=== PATIENT | male | born 1940 | race Caucasian/White ===

== ENCOUNTER 2018-08-18 05:54 | Day surgery (SDC) | payer MEDICARE ==
[~2018-08-18] VITALS: Ht 177.8 cm; Wt 94.3 kg
[~2018-08-18 05:54] MED LIST: ASCO500 PO; ASPI81CH PO; ATEN50 PO; CENTRUM SILVER1 EAC2 PO; LEVSOD100 PO; LISI5 PO; LOVA40 PO; NITR.4SL SL
--- NOTE | 2018-08-18 09:43 | NUR ---
NURSE MIDWIFE/CLINICAL INSTRUCTOR (JOSIE) GAVE REPORT. PT HAS DRSG LLQ WITH TAPE AND GAUZE CDI. PT DENIES PAIN STATES "ALITTLE TWINGE WHEN I MOVE". PT IS NOW SITTING UP AND DRINKING COFFEE WITH AT BEDSIDE. STATES THAT SHE HAS RX.
--- NOTE | 2018-08-18 09:55 | NUR ---
REPORT GIVEN TO JOHN GRAY. SHE WILL ASSUME CARE OF PT.
--- NOTE | 2018-08-18 10:19 | NUR ---
ASSUMING CARE OF PT. JOHN GRAY GAVE PT D/C INSTRUCTIONS. HAS PAPERWORK. PT HAS NO QUESTIONS OR CONCERNS. JOHN GRAY STATES PT DENIES PAIN AND IS STABLE FOR D/C . Discharge instructions reviewed with patient. Patient verbalizes understanding. Copy given to patient to take home. Patient States Post-Procedure ride home has been arranged. Discharged via wheelchair to private car for ride home. WILL DRIVE PT HOME.
== END 2018-08-18 22:51 | disposition home or self-care (01) ==
LOC: ORSCMMR 05:54 → ORD 07:30 → ORSCMMR 07:30
PROVIDERS: Surgery
PROC: 0YU60JZ Supplement Left Inguinal Region with Synthetic Substitute, Open Approach (ICD-10-PCS; principal; 2018-08-18 07:30)
DX: K40.90 Unilateral inguinal hernia, without obstruction or gangrene, not specified as recurrent (principal); I10 Essential (primary) hypertension; I25.10 Atherosclerotic heart disease of native coronary artery without angina pectoris; G47.33 Obstructive sleep apnea (adult) (pediatric); I25.2 Old myocardial infarction; E03.9 Hypothyroidism, unspecified; Z79.899 Other long term (current) drug therapy; Z79.82 Long term (current) use of aspirin
CPT/HCPCS: C1781; J0690; J1100; J1885; J2405; J2710; J3010; J7120

== ENCOUNTER → 2018-09-10 | Outpatient (CLI) | payer MEDICARE | END | disposition home or self-care (01) | LOC: LAB 13:27 → LAB SHORT 13:27 | DX: R82.90 Unspecified abnormal findings in urine (principal) | CPT/HCPCS: 87077; 87086; 87186 ==

== ENCOUNTER → 2018-09-29 | Outpatient (CLI) | payer MEDICARE ==
[2018-09-29 09:05] LABS: Source, Urine Clean Catch
[2018-09-29 13:44] LABS: Bilirubin, Urine Neg (Neg); Blood, Urine Neg (Neg); Glucose Qualitative, Urine Neg (Neg); Ketones, Urine Neg (Neg); Leukocyte Esterase, Urine Neg (Neg); Nitrite, Urine Neg (Neg); Protein, Urine Neg (Neg); Urobilinogen, Urine NORM (Normal)
[2018-09-29 13:56] LABS: Color, Urine Yellow (P-Yellow)
[2018-09-29 13:57] LABS: Appearance, Urine Clear (Clear)
== END | disposition home or self-care (01) ==
LOC: LAB 09:04 → LAB SHORT 09:04
PROVIDERS: Nurse Practitioner Family
DX: N39.0 Urinary tract infection, site not specified (principal)
CPT/HCPCS: 81003

== ENCOUNTER 2018-12-17 09:13 | Day surgery (SDC) | payer MEDICARE ==
[~2018-12-17] VITALS: Ht 180.3 cm; Wt 90.9 kg
== END 2018-12-17 11:25 | disposition home or self-care (01) ==
LOC: ORSCSDS 09:13
PROVIDERS: Internal Medicine Gastroenterology
PROC: 0DBM8ZX Excision of Descending Colon, Via Natural or Artificial Opening Endoscopic, Diagnostic (ICD-10-PCS; principal; 2018-12-17 10:30)
DX: Z12.11 Encounter for screening for malignant neoplasm of colon (principal); Z86.010 Personal history of colon polyps; Z80.0 Family history of malignant neoplasm of digestive organs; K63.5 Polyp of colon; K57.30 Diverticulosis of large intestine without perforation or abscess without bleeding; K64.1 Second degree hemorrhoids; I25.10 Atherosclerotic heart disease of native coronary artery without angina pectoris; E03.9 Hypothyroidism, unspecified; I10 Essential (primary) hypertension; E78.5 Hyperlipidemia, unspecified; I25.2 Old myocardial infarction; G47.33 Obstructive sleep apnea (adult) (pediatric); K21.9 Gastro-esophageal reflux disease without esophagitis; Z87.891 Personal history of nicotine dependence; Z79.899 Other long term (current) drug therapy; Z79.82 Long term (current) use of aspirin
CPT/HCPCS: 88305; J2704; J7120

== ENCOUNTER → 2019-04-30 | Outpatient (CLI) | payer MEDICARE ==
[2019-05-08 14:06] LABS: BRUSHITE 0.54 ratio (0.00-3.00); CALCIUM OXALATE 3.92 ratio (0.00-6.00); CALCIUM, URINE 6.6 mg/dL (Not Estab.); CALCIUM, URINE 92.4 mg/24 hr (100.0-300.0); CHLORIDE URINE 98 (110-250); CITRIC ACID (CITRATE) 114 mg/L (Not Estab.); CITRIC ACID(CITRATE) 160 mg/24 hr (320-1240); CREATININE, URINE 57.9 mg/dL (Not Estab.); CREATININE, URINE 810.6 mg/24 hr (1000.0-2000.0); MAGNESIUM, URINE 4.9 mg/dL (Not Estab.); MONOSODIUM URATE 2.07 ratio (0.00-4.00); OSMOLALITY, URINE 313 (300-900); SODIUM, URINE 118 (58-337); SODIUM, URINE 84 mmol/L (Not Estab.); STRUVITE 0.01 ratio (0.00-1.00); URIC ACID 1.52 ratio (0.00-1.20); URINE VOLUME 1400 mL/24 hr (800-1800); URINE VOLUME (PRESERVATIVE) 1400 mL/24 hr (800-1800)
== END | disposition home or self-care (01) ==
LOC: LAB 10:27 → LAB SHORT 10:27 → LAB FUT 04-06 15:00
PROVIDERS: Urology
DX: N20.0 Calculus of kidney (principal)
CPT/HCPCS: 81003; 81050; 82131; 82140; 82340; 82436; 82507; 82570; 83735; 83935; 83945; 84105; 84133; 84300; 84392; 84560

== ENCOUNTER → 2022-07-01 | Outpatient (CLI) | payer MEDICARE | END | disposition home or self-care (01) | LOC: LAB 07:00 → LAB SHORT 07:00 → LAB FUT 05-17 13:30 → EDSTATUS 05-17 13:30 | DX: N20.2 Calculus of kidney with calculus of ureter (principal) | CPT/HCPCS: 81050 ==

== ENCOUNTER → 2022-10-11 | Outpatient (CLI) | payer MEDICARE | END | disposition home or self-care (01) | LOC: LAB 07:00 → LAB SHORT 07:00 → LAB FUT 08-16 16:35 → EDSTATUS 08-16 16:35 | DX: N20.0 Calculus of kidney (principal) | CPT/HCPCS: 81050 ==

== ENCOUNTER → 2023-04-25 | Outpatient (CLI) | payer MEDICARE | END | disposition home or self-care (01) | LOC: LAB 08:00 → LAB SHORT 08:00 → EDSTATUS 03-10 11:55 → LAB FUT 03-10 11:55 | DX: N20.2 Calculus of kidney with calculus of ureter (principal) | CPT/HCPCS: 81050 ==

== ENCOUNTER 2024-01-29 11:42 | Emergency (ER) | payer MEDICARE ==
[~2024-01-29] VITALS: Ht 180.3 cm; Wt 92.1 kg
[2024-01-29 12:02] VITALS: BP 145/85
[2024-01-29 12:46] LABS: Source, Urine Clean Catch
[2024-01-29 12:56] LABS: Bilirubin, Urine Neg (Neg); Blood, Urine 1+ (Neg); Glucose Qualitative, Urine Neg (Neg); Ketones, Urine Neg (Neg); Leukocyte Esterase, Urine Neg (Neg); Nitrite, Urine Neg (Neg); Protein, Urine Neg (Neg); Specific Gravity, Urine 1.015 (1.003-1.022); Urobilinogen, Urine NORM (Normal)
[2024-01-29 13:41] LABS: Color, Urine Pale Yellow (P-Yellow)
[2024-01-29 13:42] LABS: Appearance, Urine Clear (Clear); Bacteria Mod /hpf; Renal Epithelial Rare /hpf (0-Rare); Squamous Epithelial Cells Rare /hpf (Few); White Blood Cells, Urine 0-2 /hpf (0-5)
[2024-01-29] MEDS ORDERED: CEFD300 PO (14:05)
== END 2024-01-29 14:35 | disposition home or self-care (01) ==
LOC: ER 11:42
PROVIDERS: Physician Assistant
DX: N39.0 Urinary tract infection, site not specified (principal); Z87.891 Personal history of nicotine dependence
CPT/HCPCS: 51702; 51798; 81001; 87086; 99283-25

== ENCOUNTER 2024-02-03 08:46 | Emergency (ER) | payer MEDICARE ==
[~2024-02-03] VITALS: Ht 180.3 cm; Wt 92.5 kg
[~2024-02-03 08:46] MED LIST changes: +CEFD300 PO
[2024-02-03 09:37] VITALS: BP 154/82
[2024-02-03] MEDS ORDERED: Flomax0.4 MG PO (09:43)
[2024-02-04] MEDS ORDERED: SULTRIDS PO (06:32)
== END 2024-02-03 09:53 | disposition home or self-care (01) ==
LOC: ER 08:46
DX: Z46.6 Encounter for fitting and adjustment of urinary device (principal); N40.0 Benign prostatic hyperplasia without lower urinary tract symptoms; Z79.899 Other long term (current) drug therapy; Z87.440 Personal history of urinary (tract) infections; Z98.62 Peripheral vascular angioplasty status; Z87.891 Personal history of nicotine dependence; Z79.890 Hormone replacement therapy; Z79.82 Long term (current) use of aspirin; Z79.2 Long term (current) use of antibiotics; Z90.01 Acquired absence of eye
CPT/HCPCS: 99283

== ENCOUNTER 2024-02-04 05:20 | Emergency (ER) | payer MEDICARE ==
[~2024-02-04] VITALS: Ht 188 cm; Wt 81.7 kg
[~2024-02-04 05:20] MED LIST changes: +Flomax0.4 MG PO
[2024-02-04 06:01] VITALS: BP 135/87
[2024-02-04 06:02] LABS: Source, Urine Foley catheter
[2024-02-04 06:04] LABS: Bilirubin, Urine Neg (Neg); Blood, Urine 1+ (Neg); Glucose Qualitative, Urine Neg (Neg); Ketones, Urine Neg (Neg); Leukocyte Esterase, Urine 2+ (Neg); Nitrite, Urine Neg (Neg); Protein, Urine 2+ (Neg); Urobilinogen, Urine 1+ (Normal)
[2024-02-04 06:05] LABS: Appearance, Urine Clear (Clear); Color, Urine Amber (P-Yellow)
[2024-02-04 06:10] LABS: Amorphous Light (0-Heavy); Bacteria Few /hpf; Red Blood Cells, Urine 0-2 /hpf (0-2); Squamous Epithelial Cells Rare /hpf (Few)
[2024-02-04] MEDS ORDERED: Trimethoprim/Sulfamethoxazole DS Tab PO ONE (06:30)
[2024-02-04] MEDS ORDERED: SULTRIDS PO (06:32)
== END 2024-02-04 06:42 | disposition home or self-care (01) ==
LOC: ER 05:20
PROVIDERS: Emergency Medicine
DX: N39.0 Urinary tract infection, site not specified (principal); I10 Essential (primary) hypertension; E78.5 Hyperlipidemia, unspecified; E03.9 Hypothyroidism, unspecified; Z87.891 Personal history of nicotine dependence; Z79.899 Other long term (current) drug therapy; Z79.82 Long term (current) use of aspirin
CPT/HCPCS: 51702; 51798; 81001; 87086; 99283-25; A9270

== ENCOUNTER → 2024-04-01 | Outpatient (CLI) | payer MEDICARE ==
[~2024-04-01] MED LIST changes: +SULTRIDS PO
[2024-04-01 15:29] LABS: Source, Urine Clean Catch
[2024-04-01 18:54] LABS: Appearance, Urine Clear (Clear); Bilirubin, Urine Neg (Neg); Blood, Urine Neg (Neg); Color, Urine Yellow (P-Yellow); Glucose Qualitative, Urine Neg (Neg); Ketones, Urine Neg (Neg); Leukocyte Esterase, Urine 3+ (Neg); Nitrite, Urine Pos (Neg); Protein, Urine 2+ (Neg); Specific Gravity, Urine 1.015 (1.003-1.022); Urobilinogen, Urine 2+ (Normal)
[2024-04-01 19:06] LABS: Red Blood Cells, Urine 0-2 /hpf (0-2)
[2024-04-01 19:07] LABS: Bacteria Many /hpf; Squamous Epithelial Cells Rare /hpf (Few)
[2024-04-01 19:08] LABS: Hyaline Casts 0-2 /lpf (0-2)
== END | disposition home or self-care (01) ==
LOC: LAB 12:50 → LAB SHORT 12:50
PROVIDERS: Nurse Practitioner Acute Care
DX: R35.1 Nocturia (principal); R39.11 Hesitancy of micturition
CPT/HCPCS: 81001; 87077; 87086; 87186

== ENCOUNTER → 2024-04-23 | Outpatient (CLI) | payer MEDICARE ==
[~2024-04-23] MED LIST changes: +ALLO100 PO; +AMOX-CLAV 875-1 EAC5 PO; -ASPI81CH PO; +Aspir 8181 MG PO; +EUTHYROX50 MCG PO; -LEVSOD100 PO; -LISI5 PO; +MIRT15 PO; +MIRTAZAPINE7.5 M1 PO; +PANT40 PO; +Prinivil10 MG PO
[2024-04-23 08:21] LABS: Source, Urine Clean Catch
[2024-04-23 12:21] LABS: Appearance, Urine Hazy (Clear); Bilirubin, Urine Neg (Neg); Blood, Urine 1+ (Neg); Color, Urine Amber (P-Yellow); Glucose Qualitative, Urine Neg (Neg); Ketones, Urine Neg (Neg); Leukocyte Esterase, Urine 2+ (Neg); Nitrite, Urine Neg (Neg); Protein, Urine 2+ (Neg); Urobilinogen, Urine 2+ (Normal)
[2024-04-23 13:12] LABS: Red Blood Cells, Urine 0-2 /hpf (0-2)
[2024-04-23 13:13] LABS: Amorphous Light (0-Heavy); Bacteria Few /hpf; Squamous Epithelial Cells Rare /hpf (Few)
[2024-04-29 10:25] LABS: CALCIUM, URINE - PER 24H 8 mg/d (100-250); CHLORIDE, URINE - PER 24H 27 mmol/d (140-250); CHLORIDE, URINE - PER VOLUME 64 mmol/L; CITRIC ACID, URINE - PER 24H 110 mg/d (320-1240); CITRIC ACID,URINE - PER VOLUME 263 mg/L; CREATININE, URINE - PER 24H 714 mg/d (600-2000); CREATININE, URINE - PER VOLUME 171 mg/dL; HOURS COLLECTED 23 hr; MAGNESIUM, URINE - PER VOLUME 4.3 mg/dL; MAGNESIUM, URINE PER 24H 18 mg/d (12-199); OXALATE, URINE - PER 24H 23 mg/d (16-49); OXALATE, URINE - PER VOLUME 56 mg/L; PH, URINE 5.69 (5.00-7.50); PHOSPHORUS, URINE - PER 24H 255 mg/d (400-1300); PHOSPHORUS, URINE - PER VOLUME 61 mg/dL; POTASSIUM, URINE - PER 24H 34 mmol/d (25-125); POTASSIUM, URINE - PER VOLUME 81 mmol/L; SODIUM, URINE - PER 24H 30 mmol/d (51-286); SODIUM, URINE - PER VOLUME 71 mmol/L; SULFATE, URINE - PER 24H 7 mmol/d (6-30); SULFATE, URINE - PER VOLUME 17 mmol/L; TOTAL VOLUME 400 mL; URIC ACID, URINE - PER 24H 247 mg/d (250-750); URIC ACID, URINE - PER VOLUME 59.2 mg/dL; URINE SUPERSATURATION INTERP Abnormal; URINE SUPERSATURATION, CAHPO4 0.16; URINE SUPERSATURATION, CAOX 2.58; URINE SUPERSATURATION, UA CALC 1.57
== END ==
LOC: LAB 06:00 → LAB SHORT 06:00 → LAB FUT 03-03 09:50
PROVIDERS: Nurse Practitioner Acute Care; Urology
DX: N20.0 Calculus of kidney (principal); R35.1 Nocturia; R39.11 Hesitancy of micturition
CPT/HCPCS: 81001; 81003; 81050; 82131; 82140; 82340; 82436; 82507; 82570; 83735; 83935; 83945; 84105; 84133; 84300; 84392; 84560; 87086

== ENCOUNTER 2024-04-30 08:49 | Observation (INO) | payer MEDICARE ==
[~2024-04-30] VITALS: Ht 180.3 cm; Wt 79.7 kg
[~2024-04-30 08:49] MED LIST changes: -ALLO100 PO; -AMOX-CLAV 875-1 EAC5 PO; -MIRT15 PO; -MIRTAZAPINE7.5 M1 PO; -PANT40 PO
[2024-04-30 10:01] LABS: Hematocrit 24.6 % (37.0-53.0); Hemoglobin 8.1 g/dL (13.5-17.5); Mean Corpuscular HGB Conc 32.9 g/dL (31.5-36.5); Mean Corpuscular Volume 94 fL (80-100); Mean Platelet Volume 9.9 fL (9.1-12.4); NRBC ABSOLUTE 0.03 K/mm3 (0.00-0.02); NRBC Auto 0.5 /100 WBC (0.0-0.2); Platelet Count 175 K/mm3 (150-400); RDW Coefficient Variation 16.5 % (11.7-14.2); RDW Standard Deviation 55.8 fL (35.1-46.3); Red Blood Cell Count 2.61 M/mm3 (4.30-5.90); White Blood Cell Count 6.37 K/mm3 (4.00-11.30)
[2024-04-30 10:19] LABS: Free Thyroxine 1.44 ng/dL (0.70-1.60)
[2024-04-30 10:23] LABS: Albumin, Blood 2.3 g/dL (3.4-5.0); Albumin/Globulin Ratio 0.5 (0.8-1.8); BAND PERCENT MAN 4 % (0-8); BASOPHILS PERCENT MAN 0 % (0-2); Bilirubin, Total 1.1 mg/dL (0.1-1.0); Bun/Creatinine Ratio 30.7 (12.0-20.0); Calcium, Blood 8.5 mg/dL (8.5-10.1); Creatinine, Blood 1.01 mg/dL (0.60-1.20); EOSINOPHILS ABSOLUTE MAN 0.06 K/mm3 (0.00-0.68); EOSINOPHILS PERCENT MAN 1 % (0-6); Globulin, Blood 4.7 g/dL (2.2-4.0); LYMPHOCYTES ABSOLUTE MAN 0.76 K/mm3 (0.84-5.20); LYMPHOCYTES PERCENT MAN 12 % (21-46); METAMYELOCYTE ABSOLUTE MAN 0.25 K/mm3 (0.00-0.00); METAMYELOCYTE PERCENT MAN 4 % (0-0); MONOCYTES ABSOLUTE MAN 0.25 K/mm3 (0.16-1.47); MONOCYTES PERCENT MAN 4 % (4-13); MYELOCYTE ABSOLUTE MAN 0.06 K/mm3 (0.00-0.00); MYELOCYTE PERCENT MAN 1 % (0-0); NEUTROPHILS ABSOLUTE MAN 4.96 K/mm3 (1.96-9.15); Potassium, Blood 4.5 mmol/L (3.5-5.5); SEG NEUTROPHILS PERCENT MAN 74 % (41-73); TOTAL CELLS COUNTED 100; Thyroid Stimulating Hormone 2.04 uIU/mL (0.360-4.800)
[2024-04-30 11:07] LABS: Source, Urine Clean Catch
[2024-04-30 11:16] LABS: Appearance, Urine Clear (Clear); Bilirubin, Urine Neg (Neg); Blood, Urine Neg (Neg); Color, Urine Yellow (P-Yellow); Glucose Qualitative, Urine Neg (Neg); Ketones, Urine Neg (Neg); Leukocyte Esterase, Urine 1+ (Neg); Nitrite, Urine Neg (Neg); Protein, Urine 1+ (Neg); Specific Gravity, Urine 1.015 (1.003-1.022); Urobilinogen, Urine 1+ (Normal)
[2024-04-30 11:26] LABS: Bacteria Rare /hpf; Red Blood Cells, Urine 0-2 /hpf (0-2); Squamous Epithelial Cells Rare /hpf (Few)
[2024-04-30 11:28] LABS: Influenza A, PCR NEGATIVE (NEGATIVE); Influenza B, PCR NEGATIVE (NEGATIVE); Resp Syncytial Virus, PCR NEGATIVE (NEGATIVE); SARS-Cov-2 (COVID-19) PCR, MMC NEGATIVE (NEGATIVE)
[2024-04-30] MEDS ORDERED: Doxycycline Hyclate 100 MG in Dextrose 5% 250 ML IV ONE (12:50)
[2024-04-30] MEDS ORDERED: CefTRIAXone Sodium 1,000 MG in NS 100 ML IV ONE (12:50)
[2024-04-30] MEDS ORDERED: FLU VACC TS2024-25(6MOS UP)/PF 45 MCG/0.5 ML SYRINGE IM ONE (13:00)
[2024-04-30 16:10] VITALS: BP 142/69
[2024-04-30] MEDS ORDERED: ALLO100 PO (17:02)
--- NOTE | 2024-04-30 18:35 | NUR ---
ADMISSION NOTE/SHIFT SUMMARY PATIENT ADMITTED TO ROOM 342 AT 1600 THIS EVENING. A/OX4, ABLE TO MAKE NEEDS KNOWN. STAND BY ASSIST WITH FWW. HISTORY OF FALLS AT HOME AND WEIGHT LOSS OF >45LBS WITHIN THE LAST 2 MONTHS. PATIENT REPORTS HE STRAIGHT CATHS AT HOME, PRIETO CATHETER PLACED PER ORDERS FROM DR. VARMA, PATIENT TOLERATED WELL. NEWLY DIAGNOSED PROSTATE CA WITH METS, PALLIATVIE CARE CONSULT. PRESSURE INJRUY NOTED TO COCCYX UPON ARRIVAL, PICTURES OBTAINED AND IN PAPER CHART. MEPILEX PLACED TO COCCYX AND WOUND CARE ORDERS RECIEVED. , CLARISA, AWARE OF PATIENT ADMISSION TO ROOM 342. PATIENT STATES IS NOT AWARE OF PATIENT'S PROGNOSIS/NEW DIAGNOSIS. PIV TO LEFT AC. PATIENT WITH MINIMAL APPETITE. VITAL SIGNS STABLE. ORIENTED TO ROOM AND CALL LIGHT SYSTEM. NO OTHER CONCERNS AT THIS TIME.
[2024-04-30 18:50] LABS: Hemoglobin 8.6 g/dL (13.5-17.5)
[2024-04-30] MEDS ORDERED: Mirtazapine 15 MG SoluTab PO SCH (21:00)
[2024-04-30] MEDS ORDERED: Azithromycin 500 MG in NS 250 ML IV SCH (21:00)
[2024-04-30 21:21] VITALS: BP 112/56
[2024-04-30] MEDS ORDERED: OxyCODONE 5 mg/Acetamin 325 mg TABLET PO PRN (22:20)
[2024-05-01 04:34] VITALS: BP 120/59
[2024-05-01 05:13] LABS: Hematocrit 24.8 % (37.0-53.0); Hemoglobin 8.1 g/dL (13.5-17.5); Mean Corpuscular HGB 30.6 pg (26.0-34.0); Mean Corpuscular HGB Conc 32.7 g/dL (31.5-36.5); Mean Corpuscular Volume 94 fL (80-100); Mean Platelet Volume 10.3 fL (9.1-12.4); NRBC ABSOLUTE 0.03 K/mm3 (0.00-0.02); NRBC Auto 0.5 /100 WBC (0.0-0.2); Platelet Count 178 K/mm3 (150-400); RDW Coefficient Variation 16.4 % (11.7-14.2); RDW Standard Deviation 55.3 fL (35.1-46.3); Red Blood Cell Count 2.65 M/mm3 (4.30-5.90); White Blood Cell Count 5.46 K/mm3 (4.00-11.30)
[2024-05-01 05:34] LABS: Albumin, Blood 2.2 g/dL (3.4-5.0); Albumin/Globulin Ratio 0.4 (0.8-1.8); Bilirubin, Total 1.1 mg/dL (0.1-1.0); Bun/Creatinine Ratio 27.3 (12.0-20.0); Calcium, Blood 8.8 mg/dL (8.5-10.1); Creatinine, Blood 0.88 mg/dL (0.60-1.20); Potassium, Blood 4.8 mmol/L (3.5-5.5); Total Protein, Blood 7.2 g/dL (6.4-8.2)
[2024-05-01] MEDS ORDERED: Levothyroxine Sodium 0.05 MG Tab PO SCH (06:00)
[2024-05-01] MEDS ORDERED: Pantoprazole Sodium 40 MG Tab PO SCH (06:00)
[2024-05-01 06:11] LABS: BAND PERCENT MAN 12 % (0-8); BASOPHILS PERCENT MAN 0 % (0-2); EOSINOPHILS ABSOLUTE MAN 0.16 K/mm3 (0.00-0.68); EOSINOPHILS PERCENT MAN 3 % (0-6); LYMPHOCYTES ABSOLUTE MAN 1.14 K/mm3 (0.84-5.20); LYMPHOCYTES PERCENT MAN 21 % (21-46); METAMYELOCYTE ABSOLUTE MAN 0.05 K/mm3 (0.00-0.00); METAMYELOCYTE PERCENT MAN 1 % (0-0); MONOCYTES ABSOLUTE MAN 0.27 K/mm3 (0.16-1.47); MONOCYTES PERCENT MAN 5 % (4-13); NEUTROPHILS ABSOLUTE MAN 3.82 K/mm3 (1.96-9.15); SEG NEUTROPHILS PERCENT MAN 58 % (41-73); TOTAL CELLS COUNTED 100
--- NOTE | 2024-05-01 06:37 | NUR ---
PEDIATRIC ORTHODONTIST SUMMARY NO MAJOR CHANGES OVERNIGHT. PT HAD A HARD TIME SLEEPING RELATED TO DIFFICULT NEWS RECEIVED DURING THE DAY AND SOME PAIN IN HIS LEGS. HE TOLERATED PERCOCET WELL AND WAS ABLE TO FALL ASLEEP. HE IS EAGER TO DISCUSS PLAN WITH /MD TODAY. HE WANTS TO KNOW IF HE SHOULD RECEIVE TREATMENT OR IF HE SHOULD DO HOSPICE. HIS CLARISA WILL BE BACK IN IN THE MORNING. PT HAS A PRESSURE INJURY TO HIS COCCYX AND WAS REMINDED AND ASSISTED TO TURN EVERY 2 HOURS THROUGHOUT THE NIGHT. HE ACCIDENTLY PULLED HIS IV DURING HIS SLEEP AND A NEW ONE WAS PLACED THIS MORNING DURING HIS AM LAB DRAW.
[2024-05-01 07:24] VITALS: BP 128/57
[2024-05-01] MEDS ORDERED: Atenolol 50 MG Tab PO SCH (09:00)
[2024-05-01] MEDS ORDERED: Atorvastatin 10 MG Tab PO SCH ×2 (09:00→18:00)
[2024-05-01] MEDS ORDERED: Lisinopril 10 MG Tab PO SCH ×2 (09:00→18:00)
[2024-05-01] MEDS ORDERED: Allopurinol 100 MG Tab PO SCH (09:00)
[2024-05-01] MEDS ORDERED: CefTRIAXone Sodium 1,000 MG in NS 100 ML IV SCH (12:00)
[2024-05-01] MEDS ORDERED: MIRTAZAPINE7.5 M1 PO (15:26)
[2024-05-01 16:32] VITALS: BP 122/61
--- NOTE | 2024-05-01 18:45 | NUR ---
PT A&OX4, VSS, RA, NON-TELE. 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 PT AND EXPRESSED CONCERNS WITH PLAN OF CARE, PALLIATIVE CARE CONSULT DID NOT HAPPEN THIS SHIFT, PALLIATIVE CARE RN UNAVAILABLE. PT WORKED WITH PT, WALKED IN HALLWAY. ONCOLOGY CONSULT ORDERED, NEEDS TISSUE BIOPSY. PT STATES LITTLE APPETITE, ATE HALF OF LUNCH. NO COMPLAINTS OF PAIN. CALLS APPROPIRATELY, CALL LIGHT IN REACH.
[2024-05-01 19:50] VITALS: BP 121/60
[2024-05-01] MEDS ORDERED: Lactobacil 2-S.Thermo-Bifido 1 1 Cap PO SCH (21:00)
[2024-05-01] MEDS ORDERED: Protein Supplement 30 ML UD PO SCH (21:00)
[2024-05-02] VITALS (7 sets, daily range): BP systolic 104–139; BP diastolic 51–66
--- NOTE | 2024-05-02 04:06 | NUR ---
BURN OUT SCARFING OPERATOR SUMMARY AWAITING ONCOLOGY CONSULT. PT IS REQUESTING THAT HE HAVE HIS BIOPSY DONE AN OUTPATIENT BECAUSE HE NO LONGER WANTS TO STAY IN THE HOSPITAL. I ENCOURAGED HIM TO AT LEAST STAY THE NIGHT AND HEAR FROM HIS DOCTORS AND HE AGREED TO THE PLAN. HE APPRECIATES BEING ABLE TO TAKE PERCOCET AT NIGHT BECAUSE HE HAS A HARD TIME SLEEPING RELATED TO MUSKULOSKELETAL PAIN, MOSTLY IN HIS PELVIS AND LEGS. HE IS HOPING HE WILL BE ABLE TO GET A PRESCRIPTION TO TAKE IT AT HOME AT NIGHT WELL.
[2024-05-02 06:07] LABS: Hemoglobin 7.8 g/dL (13.5-17.5); Mean Corpuscular HGB 30.5 pg (26.0-34.0); Mean Corpuscular HGB Conc 32.5 g/dL (31.5-36.5); Mean Corpuscular Volume 94 fL (80-100); Mean Platelet Volume 9.6 fL (9.1-12.4); NRBC ABSOLUTE 0.04 K/mm3 (0.00-0.02); NRBC Auto 0.9 /100 WBC (0.0-0.2); Platelet Count 168 K/mm3 (150-400); RDW Coefficient Variation 16.4 % (11.7-14.2); RDW Standard Deviation 55.6 fL (35.1-46.3); Red Blood Cell Count 2.56 M/mm3 (4.30-5.90); White Blood Cell Count 4.64 K/mm3 (4.00-11.30)
[2024-05-02 06:24] LABS: Bun/Creatinine Ratio 20.4 (12.0-20.0); Calcium, Blood 8.7 mg/dL (8.5-10.1); Creatinine, Blood 1.03 mg/dL (0.60-1.20); Potassium, Blood 4.2 mmol/L (3.5-5.5)
[2024-05-02 06:38] LABS: BAND PERCENT MAN 2 % (0-8); BASOPHILS PERCENT MAN 0 % (0-2); EOSINOPHILS ABSOLUTE MAN 0.18 K/mm3 (0.00-0.68); EOSINOPHILS PERCENT MAN 4 % (0-6); LYMPHOCYTES ABSOLUTE MAN 1.11 K/mm3 (0.84-5.20); LYMPHOCYTES PERCENT MAN 24 % (21-46); MONOCYTES ABSOLUTE MAN 0.32 K/mm3 (0.16-1.47); MONOCYTES PERCENT MAN 7 % (4-13); MYELOCYTE ABSOLUTE MAN 0.27 K/mm3 (0.00-0.00); MYELOCYTE PERCENT MAN 6 % (0-0); NEUTROPHILS ABSOLUTE MAN 2.73 K/mm3 (1.96-9.15); SEG NEUTROPHILS PERCENT MAN 57 % (41-73); TOTAL CELLS COUNTED 100
[2024-05-02] MEDS ORDERED: propofoL 20 ML IV ONE (08:38)
[2024-05-02] MEDS ORDERED: propofoL 50 ML IV ONE (08:40)
[2024-05-02] MEDS ORDERED: Lactated Ringer's 1,000 ML IV ONE (08:42)
[2024-05-02] MEDS ORDERED: Bupivacaine 0.5% HCl 5 MG/ML 30MLVIAL ONE (08:58)
--- NOTE | 2024-05-02 09:00 | NUR ---
PATIENT TO OR FOR RECTAL BIOPSY WITH DR SEN, NOTIFIED
--- NOTE | 2024-05-02 09:02 | NUR ---
PT IN PACU FOR PREOP, Mukul KONG CRNA AT [facility] CONSULTING WITH PT
--- NOTE | 2024-05-02 09:44 | NUR ---
05/02/24 0944 Aye Draper NO ANTIBIOTICS ORDERED, CONFIRMED WITH DR SEN
--- NOTE | 2024-05-02 11:58 | NUR ---
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
[2024-05-02] MEDS ORDERED: AMOX-CLAV 875-1 EAC5 PO (12:54)
[2024-05-02] MEDS ORDERED: MIRT15 PO (12:54)
[2024-05-02] MEDS ORDERED: PANT40 PO (12:54)
--- NOTE | 2024-05-02 13:15 | NUR ---
PATIENT DISCHARGE DEPENDANT ON 1500 HGB LEVEL. AT BEDSIDE, PALLIATIVE CARE SPOKE WITH PATIENT, AND SON AT BEDSIDE, CALL LIGHT WITH IN REACH
[2024-05-02 15:10] LABS: Hematocrit 24.1 % (37.0-53.0); Hemoglobin 7.8 g/dL (13.5-17.5)
--- NOTE | 2024-05-02 16:11 | NUR ---
disharged, instructions given to patient and son, all stated understanding of follow up needs, medications and instructions, all refused further questions
--- NOTE | 2024-05-02 16:41 | NUR ---
MET WITH PATIENT, HIS AND HIS SON NAMAN, NAMAN LIVES IN [place]. THEY HAVE ANOTHER SON VANDA WHO LIVES IN [place]. PATIENT EXPRESSED THAT HE HAD BEEN DIAGNOSED WITH CANCER AND THIS HAS BEEN A SHOCK TO THEM. HE REPORTED THAT IS HAS SPREAD TO MULTIPLE [employer]GANS AND HIS LYMPHNODES. [place]. REPORTS THAT NEITHER OF THEM SHOULD BE DRIVING AT THIS TIME. SHE SAID HER DROVE TO TOWN THE OTHER DAY AND IT WAS VERY UNSAFE. SHE REPORTS THAT SHE CANNOT PHYSICALLY TAKE THE GARBAGE DOWN TO THE ROAD THEY HAVE A VERY STEEP DRIVEWAY. THEY HAVE LIVED IN THEIR HOUSE 30 YEARS AND THEY DO NOT WANT TO LEAVE THEIR HOME. THEY ARE REQUESTING INFORMATION ON IN HOME CAREGIVERS. AND WOULD LIKE HELP FIGURING OUT TRANSPORTATION SO THAT BRADEN CAN GET TO HIS DOCTORS APOINTMENTS. BRADEN STATED THAT HE WANTS TO FIGHT THIS AND GET BETTER. WE DISCUSSED OPTIONS, CURATIVE AND COMFORT MEASURES. HE REPORTED THAT HE NEEDS TO TALK TO AN ONCOLOGIST AND FIND OUT WHAT HIS TREATMENT OPTIONS ARE SO THAT HE CAN MAKE THAT CHOICE BUT IF THERE IS A CHANCE FOR HIM TO FIGHT THIS HE WANTS TO.
== END 2024-05-02 16:20 | disposition home health service (06) ==
LOC: ER 08:49 → MEDS 08:50 → ER 14:57 → MEDS 16:47
PROVIDERS: Emergency Medicine; Surgery; ADMIT Internal Medicine
PROC: 0DJD8ZZ Inspection of Lower Intestinal Tract, Via Natural or Artificial Opening Endoscopic (ICD-10-PCS; principal; 2024-05-02 08:45)
DX: C61 Malignant neoplasm of prostate (principal); N42.89 Other specified disorders of prostate; I10 Essential (primary) hypertension; I25.10 Atherosclerotic heart disease of native coronary artery without angina pectoris; K21.9 Gastro-esophageal reflux disease without esophagitis; E78.5 Hyperlipidemia, unspecified; E03.9 Hypothyroidism, unspecified; G47.30 Sleep apnea, unspecified; Z95.5 Presence of coronary angioplasty implant and graft; Z66 Do not resuscitate
CPT/HCPCS: 0241U; 36415; 70450; 71045; 71260; 74177; 80048; 80053; 81001; 84153; 84439; 84443; 85014; 85018; 85025; 93005; 93010; 96365-59; 96366; 96367; 96375; 96376; 97116; 97162; 97530; 99285-25; A9270; G0378; J0456; J0696; J2704; J7050; J7060; J7120; Q9967

== ENCOUNTER 2024-05-12 15:40 | Inpatient (IN) | payer MEDICARE ==
[~2024-05-12] VITALS: Ht 177.8 cm; Wt 79.9 kg
[~2024-05-12 15:40] MED LIST changes: +ALLO100 PO; +AMOX-CLAV 875-1 EAC5 PO; +MIRT15 PO; +MIRTAZAPINE7.5 M1 PO; +PANT40 PO
[2024-05-12 16:07] LABS: Hematocrit 22.5 % (37.0-53.0); Hemoglobin 7.1 g/dL (13.5-17.5); Mean Corpuscular HGB 30.1 pg (26.0-34.0); Mean Corpuscular HGB Conc 31.6 g/dL (31.5-36.5); Mean Corpuscular Volume 95 fL (80-100); Mean Platelet Volume 9.6 fL (9.1-12.4); NRBC ABSOLUTE 0.09 K/mm3 (0.00-0.02); NRBC Auto 1.5 /100 WBC (0.0-0.2); Platelet Count 150 K/mm3 (150-400); RDW Coefficient Variation 17.3 % (11.7-14.2); RDW Standard Deviation 59.4 fL (35.1-46.3); Red Blood Cell Count 2.36 M/mm3 (4.30-5.90); White Blood Cell Count 5.93 K/mm3 (4.00-11.30)
[2024-05-12 16:42] LABS: Albumin, Blood 2.1 g/dL (3.4-5.0); Albumin/Globulin Ratio 0.4 (0.8-1.8); Bilirubin, Total 1.3 mg/dL (0.1-1.0); Bun/Creatinine Ratio 25.4 (12.0-20.0); Calcium, Blood 8.5 mg/dL (8.5-10.1); Creatinine, Blood 1.69 mg/dL (0.60-1.20); Globulin, Blood 4.9 g/dL (2.2-4.0); Potassium, Blood 5.1 mmol/L (3.5-5.5)
[2024-05-12 17:06] LABS: BAND PERCENT MAN 4 % (0-8); BASOPHILS ABSOLUTE MAN 0.05 K/mm3 (0.00-0.23); BASOPHILS PERCENT MAN 1 % (0-2); EOSINOPHILS PERCENT MAN 0 % (0-6); LYMPHOCYTES ABSOLUTE MAN 0.53 K/mm3 (0.84-5.20); LYMPHOCYTES PERCENT MAN 9 % (21-46); METAMYELOCYTE ABSOLUTE MAN 0.11 K/mm3 (0.00-0.00); METAMYELOCYTE PERCENT MAN 2 % (0-0); MONOCYTES ABSOLUTE MAN 0.23 K/mm3 (0.16-1.47); MONOCYTES PERCENT MAN 4 % (4-13); MYELOCYTE ABSOLUTE MAN 0.23 K/mm3 (0.00-0.00); MYELOCYTE PERCENT MAN 4 % (0-0); NEUTROPHILS ABSOLUTE MAN 4.74 K/mm3 (1.96-9.15); SEG NEUTROPHILS PERCENT MAN 76 % (41-73); TOTAL CELLS COUNTED 100
[2024-05-12 17:24] LABS: Source, Urine Clean Catch
[2024-05-12 17:41] LABS: Appearance, Urine Hazy (Clear); Blood, Urine 1+ (Neg); Color, Urine Yellow (P-Yellow); Glucose Qualitative, Urine Neg (Neg); Ketones, Urine Neg (Neg); Leukocyte Esterase, Urine 1+ (Neg); Nitrite, Urine Neg (Neg); Protein, Urine 2+ (Neg); Specific Gravity, Urine 1.025 (1.003-1.022); Urobilinogen, Urine 1+ (Normal)
[2024-05-12 18:04] LABS: Bilirubin, Urine 1+ (Neg)
[2024-05-12 18:05] LABS: Amorphous Light (0-Heavy); Bacteria Many /hpf; Squamous Epithelial Cells Rare /hpf (Few)
[2024-05-12] MEDS ORDERED: CefTRIAXone Sodium 1,000 MG in NS 100 ML IV ONE (20:05)
[2024-05-12] MEDS ORDERED: NS 1,000 ML IV SCH (20:05)
[2024-05-12] MEDS ORDERED: Ondansetron HCl 2 MG / ML 2ML Vial IV PRN (21:00)
[2024-05-12] MEDS ORDERED: FLU VACC TS2024-25(6MOS UP)/PF 45 MCG/0.5 ML SYRINGE IM ONE (21:05)
[2024-05-12] MEDS ORDERED: Lactated Ringer's 1,000 ML IV SCH (21:05)
[2024-05-12 23:14] VITALS: BP 137/57
[2024-05-13] VITALS (8 sets, daily range): BP systolic 110–136; BP diastolic 52–65
[2024-05-13] MEDS ORDERED: Acetaminophen 325 MG TABLET PO PRN (02:00)
[2024-05-13 05:54] LABS: Bun/Creatinine Ratio 27.5 (12.0-20.0); Calcium, Blood 8.4 mg/dL (8.5-10.1); Creatinine, Blood 1.42 mg/dL (0.60-1.20); Magnesium, Blood 2.3 mg/dL (1.6-2.4); Potassium, Blood 4.7 mmol/L (3.5-5.5)
--- NOTE | 2024-05-13 06:51 | NUR ---
SHIFT SUMMARY: PT ARRIVED TO ROOM 309 FROM THE ER AROUND 2300 VIA GURNEY. STAFF TRANSFERRED PT TO HOSPITAL BED. PT THEN ORIENTED TO ROOM AND CALL LIGHT. PT IS A&OX2, MENTATION WAXES AND WANES. PT IS PLEASANT AND COOPERATIVE WITH CARE. VSS ON RA. C/O PAIN TO BILATERAL THIGHS, BUT DENIES THE NEED FOR PAIN MEDICATION. PT HAS NOT BEEN OOB THIS SHIFT. HAS BEEN FREQUENTLY FALLING AT HOME PER HIS REPORT. PT USES A FWW AT BASELINE. PT STATES HE SELF CATHS TID D/T RETENTION. BLADDER SCAN THIS SHIFT SHOWED 71 MLS IN BLADDER, SEE ORDERS. NO BM THIS SHIFT. TOLERATING A REGULAR DIET, POOR PO INTAKE. BED IN LOWEST POSITION, CALL LIGHT WITHIN REACH. PT DOES NOT USE HIS CALL LIGHT APPROPRIATELY, FREQUENT ROUNDING COMPLETED. BED ALARM SET FOR PT S SAFETY.
[2024-05-13] MEDS ORDERED: Lactobacil 2-S.Thermo-Bifido 1 1 Cap PO SCH (09:00)
[2024-05-13] MEDS ORDERED: TraMADol HCl 50 MG Tab PO PRN (09:00)
[2024-05-13] MEDS ORDERED: Heparin Sodium 5000 Units/ML 1ML MDV SC SCH (09:00)
[2024-05-13] MEDS ORDERED: Pantoprazole Sodium 40 MG Tab PO SCH (09:00)
[2024-05-13] MEDS ORDERED: Allopurinol 100 MG Tab PO SCH (09:30)
[2024-05-13] MEDS ORDERED: Multivitamins/Minerals 1 Tab PO SCH (09:30)
[2024-05-13 09:51] LABS: Percent Saturation 31.9 % (20.0-50.0)
--- NOTE | 2024-05-13 11:53 | NUR ---
THIS PC RN WAS STOPPED IN HALLWAY BY PT'S . SHE STATED, SHE WAS EXPECTING TO TALK TO SAND MIXER OPERATOR YESTERDAY AFTERNOON OR THIS MORNING. UPON FURTHER INVESTIGATION, PT'S IS WANTING A GOALS OF CARE CONVERSATION. PT WAS SCHEDULED WITH DR. ROJAS TODAY 05/13/24. PT'S CANCELLED APPT D/T PT'S CURRENT ADMISSION. PHONE CALL PLACED TO [facility] ONCOLOGY. PT HAS NOT YET BEEN SEEN BY ONCOLOGY. THIS PC RN WILL FOLLOW UP WITH PT AND RE: GOALS OF CARE.
[2024-05-13 12:17] LABS: Hematocrit 21.4 % (37.0-53.0); Hemoglobin 6.7 g/dL (13.5-17.5)
[2024-05-13] MEDS ORDERED: NS 500 ML IV SCH (14:55)
--- NOTE | 2024-05-13 15:36 | NUR ---
PT'S REQUESTS CONTINUATION FOR GOALS OF CARE CONVERSATION TOMORROW, 05/14/24.
--- NOTE | 2024-05-13 16:38 | NUR ---
"Spiritual Care Notes | Pt. Request Pt. is resting in his bed when this spray maker arrives. Palliative Care and health care analyst are present, as is the attending nurse. Once the Palliative Care nurse awakened the Pt. elisabeth spray maker began a short life review. Pt. displayed evidence of some somnolence so this spray maker kept the visit short. Pt. acknowledged that he was a man of mik, so this spray maker prayed for him. Will remain available to the Pt. and family."
[2024-05-13] MEDS ORDERED: Ascorbic Acid 500 MG Tab PO SCH (18:00)
[2024-05-13] MEDS ORDERED: Atenolol 50 MG Tab PO SCH (18:00)
--- NOTE | 2024-05-13 18:09 | NUR ---
SHIFT SUMMARY PT RESPONDS TO VERBAL AND PAINFUL STIMULI, ORIENTED X2, VSS, AMB W/ 2P PIVOT ASSIST TO THE BSC W/ PHYSICAL THERAPY AND PAIN MANAGED PER EMAR. PT TOLERATING PO MEDICATIONS, BUT REFUSED MEALS AND OR SUPPLEMENTS. PT'S HGB 6.7 AND 1 UNIT OF BLOOD INFUSING. AFTER 15 MIN OF INFUSING, CRACKLES IN BASES HEARD. PT ASYMPTOMATIC. THIS NURSE NOTIFIED . NO NEW ORDERS AT THIS TIME. SPEECH THERAPY EVALUATED PT, SEE SPEECH NOTE. NO OTHER ACUTE CHANGES. CALL LIGHT WITHIN REACH.
[2024-05-13] MEDS ORDERED: Mirtazapine 15 MG Tab PO SCH ×2 (21:00)
[2024-05-13] MEDS ORDERED: CefTRIAXone Sodium 1,000 MG in NS 100 ML IV SCH (21:00)
[2024-05-14] VITALS (11 sets, daily range): BP systolic 107–124; BP diastolic 52–72
[2024-05-14 05:07] LABS: Mean Corpuscular HGB 29.2 pg (26.0-34.0); Mean Corpuscular HGB Conc 31.8 g/dL (31.5-36.5); Mean Corpuscular Volume 92 fL (80-100); Mean Platelet Volume 9.8 fL (9.1-12.4); NRBC ABSOLUTE 0.08 K/mm3 (0.00-0.02); NRBC Auto 2.2 /100 WBC (0.0-0.2); Platelet Count 117 K/mm3 (150-400); RDW Coefficient Variation 18.4 % (11.7-14.2); RDW Standard Deviation 61.2 fL (35.1-46.3); White Blood Cell Count 3.66 K/mm3 (4.00-11.30)
[2024-05-14 05:47] LABS: Albumin, Blood 1.8 g/dL (3.4-5.0); Albumin/Globulin Ratio 0.4 (0.8-1.8); Bilirubin, Total 1.9 mg/dL (0.1-1.0); Calcium, Blood 8.7 mg/dL (8.5-10.1); Creatinine, Blood 1.07 mg/dL (0.60-1.20); Globulin, Blood 4.4 g/dL (2.2-4.0); Potassium, Blood 4.7 mmol/L (3.5-5.5); Total Protein, Blood 6.2 g/dL (6.4-8.2)
[2024-05-14] MEDS ORDERED: Levothyroxine Sodium 0.05 MG Tab PO SCH (06:00)
[2024-05-14 06:01] LABS: BAND PERCENT MAN 7 % (0-8); BASOPHILS PERCENT MAN 0 % (0-2); EOSINOPHILS ABSOLUTE MAN 0.03 K/mm3 (0.00-0.68); EOSINOPHILS PERCENT MAN 1 % (0-6); LYMPHOCYTES ABSOLUTE MAN 0.43 K/mm3 (0.84-5.20); LYMPHOCYTES PERCENT MAN 12 % (21-46); METAMYELOCYTE PERCENT MAN 3 % (0-0); MONOCYTES ABSOLUTE MAN 0.21 K/mm3 (0.16-1.47); MONOCYTES PERCENT MAN 6 % (4-13); MYELOCYTE ABSOLUTE MAN 0.07 K/mm3 (0.00-0.00); MYELOCYTE PERCENT MAN 2 % (0-0); NEUTROPHILS ABSOLUTE MAN 2.78 K/mm3 (1.96-9.15); SEG NEUTROPHILS PERCENT MAN 69 % (41-73); TOTAL CELLS COUNTED 100
--- NOTE | 2024-05-14 06:35 | NUR ---
SHIFT SUMMARY PT ORIENTED TO PERSON ONLY THROUGH THE NIGHT, ALERT, BUT SLEEPY. PT CALLS OUT AND WAS RESTLESS INTERMITTENTLY. 1 UNIT PRBC'S COMPLETED. LUNGS DIMINISHED TO THE BASES. PT TOOK PILLS WHOLE WITH APPLESAUCE. INCONT. OF URINE- BLADDER SCAN COMPLETED WITH NO NEED TO STRAIGHT CATH. AWAIT STOOL FOR GUIAC. MEPILEX INTACT TO SACRUM. PT ASSISTED TO TURN THROUGHOUT THE NIGHT. BED ALARM ON. BED IN LOWEST POSITION, CALL LIGHT WITHIN REACH, SIDE RAILS UP X2.
[2024-05-14] MEDS ORDERED: Cyanocobalamin 500 MCG Tab PO SCH (09:00)
--- NOTE | 2024-05-14 18:17 | NUR ---
SHIFT SUMMARY PT A&OX2-3 W/ CONFUSION, VSS, AMB TO THE CHAIR W/ 1-2P ASSIST, TOLERATING MINIMAL AMOUNT OF PO, VOIDING, AND DENIED PAIN. PT'S HGB 7.0 THIS AM AND 1 UNIT OF RBC'S GIVEN. PALLIATIVE CARE ROUNDED ON PT AND SPOKE W/ THE PT'S FAMILY. ONCOLOGY CONSULT CALLED ON AND ROUNDED ON PT. NO OTHER ACUTE CHANGES. CALL LIGHT WITHIN REACH AND BED ALARM ON FOR SAFETY.
[2024-05-15 02:17] VITALS: BP 136/52
--- NOTE | 2024-05-15 04:36 | NUR ---
SHIFT SUMMARY AT START OF SHIFT, PT ALERT AND ORIENTED X4 WITH MINOR FORGETFULNESS. THE NIGHT PROGRESSED, PT MORE CONFUSED AND FORGETFUL. SWALLOWING THIN LIQUIDS ALSO SEEMED MORE DIFFICULT THE NIGHT PROGRESSED. MEDICATED FOR PAIN X1- SEE EMAR. PT INCONT. URINE, BLADDER SCANNED WITHOUT NEED TO STRAIGHT CATH. REPOSITIONED FOR COMFORT. MEPILEX INTACT TO SACRUM. BED IN LOWEST POSITION, CALL LIGHT WITHIN REACH, SIDE RAILS UP X2.
[2024-05-15 05:05] LABS: Hematocrit 23.1 % (37.0-53.0); Hemoglobin 7.6 g/dL (13.5-17.5); Mean Corpuscular HGB 29.5 pg (26.0-34.0); Mean Corpuscular HGB Conc 32.9 g/dL (31.5-36.5); Mean Corpuscular Volume 90 fL (80-100); Mean Platelet Volume 9.3 fL (9.1-12.4); NRBC ABSOLUTE 0.07 K/mm3 (0.00-0.02); NRBC Auto 1.6 /100 WBC (0.0-0.2); Platelet Count 106 K/mm3 (150-400); RDW Coefficient Variation 18.5 % (11.7-14.2); RDW Standard Deviation 59.7 fL (35.1-46.3); Red Blood Cell Count 2.58 M/mm3 (4.30-5.90); White Blood Cell Count 4.36 K/mm3 (4.00-11.30)
[2024-05-15 05:33] LABS: Bun/Creatinine Ratio 29.4 (12.0-20.0); Calcium, Blood 8.3 mg/dL (8.5-10.1); Creatinine, Blood 1.02 mg/dL (0.60-1.20); Potassium, Blood 4.6 mmol/L (3.5-5.5)
[2024-05-15 05:57] LABS: BAND PERCENT MAN 8 % (0-8); BASOPHILS PERCENT MAN 0 % (0-2); EOSINOPHILS ABSOLUTE MAN 0.04 K/mm3 (0.00-0.68); EOSINOPHILS PERCENT MAN 1 % (0-6); LYMPHOCYTES % ATYPICAL MANUAL 1 % (0-0); LYMPHOCYTES ABSOLUTE MAN 0.91 K/mm3 (0.84-5.20); LYMPHOCYTES PERCENT MAN 20 % (21-46); METAMYELOCYTE ABSOLUTE MAN 0.04 K/mm3 (0.00-0.00); METAMYELOCYTE PERCENT MAN 1 % (0-0); MONOCYTES ABSOLUTE MAN 0.17 K/mm3 (0.16-1.47); MONOCYTES PERCENT MAN 4 % (4-13); MYELOCYTE ABSOLUTE MAN 0.08 K/mm3 (0.00-0.00); MYELOCYTE PERCENT MAN 2 % (0-0); NEUTROPHILS ABSOLUTE MAN 3.09 K/mm3 (1.96-9.15); SEG NEUTROPHILS PERCENT MAN 63 % (41-73); TOTAL CELLS COUNTED 100
[2024-05-15 07:20] VITALS: BP 111/58
[2024-05-15] MEDS ORDERED: Zoledronic Acid 4 MG in NS 100 ML IV ONE (09:00)
[2024-05-15] MEDS ORDERED: Zinc Sulfate 220 MG Cap (Provides 50MG) PO SCH (09:30)
[2024-05-15] MEDS ORDERED: BIOTENE SALIVA STIMULANT 44.3 ML BOTTLE MM PRN (11:00)
--- NOTE | 2024-05-15 11:29 | NUR ---
"Spiritual Care Visit | Nurse Request Pt. is awake in bed, this sap portal developer arrives immediately after the family had made a decision to go comfort care. Facilitated a life review as I introduced myself to spouse and another family member at bedside. Listened with pastoral care and empathy. Pt. displayed evidence of being engaged and aware. Prayed with the Pt. and family. Pt. verbalized gratitude for the spiritual care visit."
--- NOTE | 2024-05-15 14:28 | NUR ---
FOLLOW UP ON GOALS OF CARE PT'S PRIMARY RN REPORTS, PT WANTS HOSPICE AND HE IS SAYING THINGS LIKE, 'I WON'T SEE YOU AGAIN'. THIS RN WAS GREETED BY PT AND BROTHER [place]. PT WAS WITHDRAWN AT START OF VISIT. PT WOKE TO HIS NAME BEING CALLED. HE IS A/O X4. HE REPORTS HAVING CHANGED HIS MIND FROM CURRATIVE CARE TO HOSPICE AND BACK A COUPLE OF TIMES IN THE LAST 24 HRS. THIS PC RN REVIEWED [place]IL[place]ERT BOOK, "CONSIDERING COMFORT CARE" WITH PT AND FAMILY. MAIN FOCUS OF CONVERSATION WAS, HOSPICE IS NOT GIVING UP. HOSPICE IS CHANGING CARE DOWN THE PATH OF COMFORT AND QUALITY OF LIFE. Q&A ON MYTHS OF HOSPICE. AFTER INDEPTH EDUCATION ON COMFORT CARE AND HOSPICE; BRADEN CHOSE TO PURSUE HOSPICE CARE UPON DISCHARGE. PT WOULD LIKE TO CONTINUE WITH CURRENT TX WHILE IN THE HOSPITAL. PT'S AND PT'S MINOR BOTH EXPRESS CONCERNS RE: NOT ABLE TO PROVIDE THE LEVEL OF CARE BRADEN NEEDS. FLOOR PRESS OPERATOR NOTIFIED OF CONCERS. CARE MANAGEMENT OFFICE TO SEND REFERRALS TO [facility]AL [facility] FOR H[facility]ICE CARE. PHONE CALL PLACED TO PT'S SON VANDA ([phone]) TO PROVIDE HIM WITH AN UPDATE PER PT REQUEST. VANDA WILL BE FLYING FROM [place] TO [place] TOMORROW 05/16/24. HE WILL BE IN TO SEE PT AND TALK WITH STAFF ON 05/17/24. PC TO REMAIN AVAILABLE NEEDED.
[2024-05-15 16:07] VITALS: BP 114/54
--- NOTE | 2024-05-15 17:14 | NUR ---
NO ACUTE CHANGES, PATIENT MADE WISHES KNOWN TODAY, TO BECOME HOSPICE COMFORT CARE, FACILTITY WAITING FOR INSURANCE APPROVAL. PALLIATIVE AND DR RANDALL SPOKE WITH PATIENT AND TODAY, PATIENT SLEPT MAJORITY OF THE DAY, APPETITE CONTINUES TO DECREASE, PILLS WITH APPLE SAUCE, ASPIRATION PRECAUTIONS, ORDERS FOR COMFORT CARE OR HOSPICE NOT ENTERED YET, CALL LIGHT WITH IN REACH, WILL RELAY TO PM ISAAC
[2024-05-15 20:04] VITALS: BP 112/48
[2024-05-16 03:48] VITALS: BP 120/58
--- NOTE | 2024-05-16 05:09 | NUR ---
SHIFT SUMMARY PT A&Ox4 BUT FORGETFUL, NEEDED REORIENTATION DURING THE NIGHT. PT DENIED PAIN. RT AT BEDSIDE TO SET UP HOME CPAP, HOWEVER PT PULLED IT OFF SHORTLY AFTER PLACED AND DECLINED TO HAVE IT PUT BACK ON. PT DID PULL AT LINES OCCASIONALLY DURING THE NIGHT. PT SLEPT ON AND OFF T/O NIGHT. VSS. BED ALARM ON. BED IN LOWEST POSITION AND CALL LIGHT IN REACH.
[2024-05-16 05:11] LABS: Hematocrit 27.3 % (37.0-53.0); Hemoglobin 8.8 g/dL (13.5-17.5); Mean Corpuscular HGB 29.1 pg (26.0-34.0); Mean Corpuscular HGB Conc 32.2 g/dL (31.5-36.5); Mean Corpuscular Volume 90 fL (80-100); Mean Platelet Volume 10.1 fL (9.1-12.4); NRBC ABSOLUTE 0.06 K/mm3 (0.00-0.02); NRBC Auto 1.3 /100 WBC (0.0-0.2); Platelet Count 113 K/mm3 (150-400); RDW Coefficient Variation 17.7 % (11.7-14.2); RDW Standard Deviation 57.4 fL (35.1-46.3); Red Blood Cell Count 3.02 M/mm3 (4.30-5.90); White Blood Cell Count 4.58 K/mm3 (4.00-11.30)
[2024-05-16 05:43] LABS: BAND PERCENT MAN 6 % (0-8); BASOPHILS ABSOLUTE MAN 0.09 K/mm3 (0.00-0.23); BASOPHILS PERCENT MAN 2 % (0-2); EOSINOPHILS ABSOLUTE MAN 0.09 K/mm3 (0.00-0.68); EOSINOPHILS PERCENT MAN 2 % (0-6); LYMPHOCYTES % ATYPICAL MANUAL 1 % (0-0); LYMPHOCYTES ABSOLUTE MAN 0.87 K/mm3 (0.84-5.20); LYMPHOCYTES PERCENT MAN 18 % (21-46); METAMYELOCYTE ABSOLUTE MAN 0.04 K/mm3 (0.00-0.00); METAMYELOCYTE PERCENT MAN 1 % (0-0); MONOCYTES ABSOLUTE MAN 0.22 K/mm3 (0.16-1.47); MONOCYTES PERCENT MAN 5 % (4-13); MYELOCYTE ABSOLUTE MAN 0.22 K/mm3 (0.00-0.00); MYELOCYTE PERCENT MAN 5 % (0-0); NEUTROPHILS ABSOLUTE MAN 3.02 K/mm3 (1.96-9.15); SEG NEUTROPHILS PERCENT MAN 60 % (41-73); TOTAL CELLS COUNTED 100
[2024-05-16 06:01] LABS: Bun/Creatinine Ratio 31.7 (12.0-20.0); Calcium, Blood 8.3 mg/dL (8.5-10.1); Creatinine, Blood 0.98 mg/dL (0.60-1.20); Potassium, Blood 4.6 mmol/L (3.5-5.5)
[2024-05-16 07:26] VITALS: BP 113/52
[2024-05-16 15:45] VITALS: BP 123/59
[2024-05-16 21:12] VITALS: BP 122/59
[2024-05-17 02:34] VITALS: BP 117/60
--- NOTE | 2024-05-17 05:00 | NUR ---
SHIFT SUMMARY PT ALERT TO SELF AND MORE CONFUSED THIS SHIFT. PT STATED HE WAS AT "[employer] [facility]" AND THAT HE WAS LOOKING TO "BUY THIS PLACE". PT ALSO POINTED TO CORNER OF ROOM ASKING FOR THE MEAT TO BE TAKEN DOWN BECAUSE HE'S MAKING TOSTADAS AND MORE SIMILAR EVENTS DURING THE NIGHT. PT DID C/O PAIN IN LEGS THAT WAS SHOOTING AND WOULD COME ON SUDDENLY. MEDICATED PER EMAR WITH GOOD EFFECT. PRIETO IN PLACE AND DRAINING TO GRAVITY. VSS. BED ALARM ON. BED IN LOWEST POSITION AND CALL LIGHT IN REACH.
[2024-05-17 07:05] VITALS: BP 119/58
--- NOTE | 2024-05-17 10:52 | NUR ---
MET WITH PT'S SPOUSE CLARISA AND SON VANDA IN THE HALLWAY. BOTH EXPRESS GRATITUE FOR THE CARE PT HAS RECEIVED. THEY ALSO EXPRESSED ELATION WITH THE ASSITANCE OF AF PLACEMENT FOR BOTH PT AND CLARISA. NO ACUTE NEEDS FOR PT AT THIS TIME. PLAN IS FOR PT TO D/C ON HOSPICE TO [facility] THIS WEEK. PC WILL CONTINUE TO BE AVAILABLE NEEDED.
[2024-05-17 14:57] VITALS: BP 126/62
--- NOTE | 2024-05-17 16:30 | NUR ---
no changes, no change improvement/decrease in patient mentation, alert and oreinted to self, family, and staff. makes needs known, speech mumbled at times, reorients easily, waiting for insurance to accept [place] [facility] for patient and , call ligt with in reach, will relay to pm rn
--- NOTE | 2024-05-17 19:39 | NUR ---
RECEIVED BEDSIDE REPORT FROM DAYSHIFT RN. NO NEEDS AT THIS TIME. CALL LT IN REACH.
[2024-05-17 20:52] VITALS: BP 103/68
--- NOTE | 2024-05-17 21:15 | NUR ---
PT EASILY AWAKENS TO VOICE. TOOK MED WHOLE IN APPLESAUCE WITHOUT CHOKING OR COUGHING. RESP EVEN ON RA. PRIETO IN PLACE AND DRAINING TEA COLORED URINE. REPOSITIONED FOR COMFORT. ON RA. BED ALARM ON. CALL LT IN REACH.
--- NOTE | 2024-05-17 23:52 | NUR ---
PT DENIES PAIN, STATES HE'S DOING FINE. NO OTHER NEEDS. CALL LT IN REACH. BED ALARM ON.
--- NOTE | 2024-05-18 02:39 | NUR ---
PT RESTING, OCCASIONALLY MOVING LEGS IN BED, BED ALARM ON. CALL LT IN REACH.
--- NOTE | 2024-05-18 03:53 | NUR ---
SHIFT SUMMARY: PT IS ORIENTED TO SELF AND FAMILY. IS ABLE TO MAKE NEEDS KNOWN. CONFUSED AT TIMES. ON RA. MOVES SELF IN BED. PRIETO IN PLACE AND PATENT. MEDS WHOLE ONE AT A TIME IN APPLESAUCE. DENIED PAIN MEDICATION WHEN ASKED, STATES HE'S OK. NO ACUTE CHANGES. WILL CONTINUE TO PROVIDE CARE UNTIL SHIFT REPORT TO ONCOMING NURSE. BED ALARM ON. CALL LT IN REACH.
[2024-05-18 05:54] VITALS: BP 112/57
--- NOTE | 2024-05-18 06:01 | NUR ---
REPOSITIONED PT. PT REFUSED HIS THYROID PILL, STATES I DON'T TAKE THYROID PILL. NO OTHER NEEDS. CALL LT IN REACH. BED ALARM ON.
[2024-05-18 07:12] VITALS: BP 109/70
[2024-05-18] MEDS ORDERED: OxyCODONE HCL 5 MG TAB PO ONE (14:05)
--- NOTE | 2024-05-18 15:04 | NUR ---
PALLIATIVE CARE - SUPPORTIVE VISIT PT DENIES ANY ACUTE NEEDS AT THIS TIME. DENIES PAIN/SOB. A/O X4. VERY JOVIAL. ABLE TO MAKE NEEDS KNOWN. HE IS SITTING UP IN CHAIR. PRIETO IS PATENT AND DRAINING DARK DANIKA/ORANGE URINE. EDUCATED ON IMPORTANCE OF WATER INTAKE. BRADEN VERBALIZED UNDERSTANDING THAT HE NEEDS TO INCREASE PO INTAKE A WHOLE. HE THEN DRANK 16 OZ OF WATER DURING THIS VISIT. PT'S , CLARISA AND SON, VANDA ARE AT BEDSIDE. ALL THREE OF THEM EXPRESS EXCITEMENT ABOUT BOTH BRADEN AND CLARISA'S MOVE TO THE [facility] THIS AFTERNOON. ADDITIONAL EDUCATION PROVIDED TO VANDA RE: WHAT HOSPICE WILL ENTAIL AND THE RESOURCES AVAILABLE. MET WITH [facility] CLIENT SERVICE SUPERVISORAYLIN IN THE HALLWAY THIS PC RN EXITED PT'S ROOM. WARM HANDOFF TO HOSPICE THIS PC RN INTRODUCED AYLIN RN TO PT AND FAMILY. NOTIFIED PROVIDER, PT WOULD LIKE TO REMAIN ON HOME MEDICATIONS UPON D/C TO AF. PROVIDER TO PLACE MED REC ORDERS. CARE MANAGEMENT AND PRIMARY RN UPDATED.
[2024-05-18 16:02] VITALS: BP 120/59
--- NOTE | 2024-05-18 17:50 | NUR ---
DISCHARGE SUMMARY PT DC THIS SHIFT. DC INSTRUCTION GONE OVER WITH PT, PT , AND PT SON. PT AND FAMILY BOTH STATED THAT PT WOULD NOT BE TAKEN REMERON AND TO NOT CALL IT IN PT HAS SUICIDAL THOUGHTS ON MEDICATION. PT AND PT STATED THAT THE REST OF THE MEDICATION WAS FINE PT ALREADY TAKES THEM AND HAS THEM WITH HIM TO TAKE TO THE [facility]. PT WAS PICKED UP BY TRANSPORTATION SERVICE AND LEFT VIA WHEELCHAIR AROUND 1630.
== END 2024-05-18 16:31 | disposition hospice, home (50) | DRG 683 ==
LOC: ER 15:40 → ERHOLD 22:30 → MEDS 22:30
PROVIDERS: Emergency Medicine; Family Medicine; Nurse Practitioner Acute Care; Student in an Organized Health Care Education/Training Program; ADMIT Student in an Organized Health Care Education/Training Program
PROC: 30233N1 Transfusion of Nonautologous Red Blood Cells into Peripheral Vein, Percutaneous Approach (ICD-10-PCS; principal; 2024-05-13)
DX: N17.9 Acute kidney failure, unspecified (principal); C77.5 Secondary and unspecified malignant neoplasm of intrapelvic lymph nodes; C79.51 Secondary malignant neoplasm of bone; D61.818 Other pancytopenia; E46 Unspecified protein-calorie malnutrition; Z66 Do not resuscitate; Z68.25 Body mass index [BMI] 25.0-25.9, adult; C61 Malignant neoplasm of prostate; E03.9 Hypothyroidism, unspecified; E86.0 Dehydration; N40.1 Benign prostatic hyperplasia with lower urinary tract symptoms; I10 Essential (primary) hypertension; R33.8 Other retention of urine; E78.5 Hyperlipidemia, unspecified; D63.0 Anemia in neoplastic disease; I25.10 Atherosclerotic heart disease of native coronary artery without angina pectoris; K21.9 Gastro-esophageal reflux disease without esophagitis; R47.81 Slurred speech; I25.2 Old myocardial infarction; Z87.442 Personal history of urinary calculi; Z98.52 Vasectomy status; Z98.890 Other specified postprocedural states; Z87.891 Personal history of nicotine dependence; Z79.82 Long term (current) use of aspirin; Z79.890 Hormone replacement therapy; Z79.899 Other long term (current) drug therapy
CPT/HCPCS: 36415; 36430; 70450; 71260; 76770; 80048; 80053; 81001; 82550; 82607; 82728; 82746; 83540; 83550; 83735; 84484; 85014; 85018; 85025; 86850; 86900; 86901; 86923; 87086; 92526; 92610; 93005; 93010; 94762; 96365-59; 97110; 97162; 97165; 97530; 99285-25; A9270; J0696; J3489; J7030; J7040; J7120; P9016; Q9967

== ENCOUNTER → 2024-06-22 | Outpatient (CLI) | payer MEDICARE ==
[2024-06-22 18:46] LABS: Appearance, Urine Clear (Clear); Bilirubin, Urine Neg (Neg); Blood, Urine 5+ (Neg); Glucose Qualitative, Urine Neg (Neg); Ketones, Urine Neg (Neg); Leukocyte Esterase, Urine 3+ (Neg); Nitrite, Urine Neg (Neg); Protein, Urine 2+ (Neg); Specific Gravity, Urine 1.005 (1.003-1.022); Urobilinogen, Urine NORM (Normal)
[2024-06-22 18:57] LABS: Color, Urine Pale Yellow (P-Yellow)
[2024-06-22 18:58] LABS: Bacteria Many /hpf; Squamous Epithelial Cells Not Seen /hpf (Few); White Blood Cells, Urine TNTC /hpf (0-5)
== END ==
LOC: LAB SHORT 14:30 → LAB 14:30
PROVIDERS: Internal Medicine Hematology & Oncology
DX: N39.0 Urinary tract infection, site not specified (principal)
CPT/HCPCS: 81001; 87077; 87086; 87186